=== PATIENT | female | born 1940 | race Caucasian/White ===

== ENCOUNTER 2017-04-22 14:13 | Emergency (ER) | payer OTHER, MEDICARE ==
[~2017-04-22] VITALS: Ht 152.4 cm; Wt 99.7 kg
[~2017-04-22 14:13] MED LIST: ADVAIR 250/501 DISK IH; ALEVE220 MG PO; Ascorbic Acid,Ester- PO; Benadryl PO; CYMBALTA30 MG PO; Coreg PO; Coumadin,Jantoven PO; Cymbalta PO; Feosol PO; Folvite PO; HYZAAR 100-21 TABLET PO; LEVOTHYROXINE50 MCG PO; LIDODERM 5% P1 PATCH TD; LO-DOSE ASPIRIN81 M1 PO; LOPRESSOR25 MG PO; Levaquin PO; Levothroid,Synthroid PO; Lopressor PO; METOPROLOL TART25 MG PO; Maalox, Mylanta PO; NOVOLOG PE100 UNITS/ SC; OxyCONTIN PO; PLAVIX75 MG PO; PROAIR HFA8.5 GM IH; Percocet 5/325,Endoc PO; Plavix PO; Pravachol PO; Proventil,Ventolin H IH; Reglan PO; SIMVASTATIN40 MG PO; SYNTHROID50 MCG PO; Senokot S,Pericolace PO; TYLENOL REGULA325 MG PO; Theragran PO; ULTRACET1 TABLET PO; Vitamin D PO; ZITHROMAX250 MG PO; ZOCOR40 MG PO; oxyCODONE PO; predniSONE PO
[2017-04-22 15:08] LABS: APPEARANCE SL.HAZY ((CLEAR)); BILIRUBIN NEGATIVE; BLOOD LARGE; COLOR YELLOW ((YELLOW)); GLUCOSE (STRIP) NEGATIVE; KETONES NEGATIVE; LEUKOCYTES NEGATIVE; NITRITE NEGATIVE; PROTEIN (STRIP) 30; SPECIFIC GRAVITY 1.014 (1.000-1.030); UROBILINOGEN 0.2 MG/DL (0.2-1.0)
[2017-04-22 15:13] LABS: BACTERIA NONE SEEN /HPF; EPITHELIAL CELLS RARE /HPF; MUCUS TRACE /LPF; RED BLOOD CELLS TNTC /HPF (0-5)
[2017-04-22 16:00] LABS: BASOPHIL (%) 0.2 % (0-1); EOSINOPHIL (%) 0.3 % (0-5); HEMATOCRIT 38.8 % (36.0-46.0); HEMOGLOBIN 12.4 G/DL (11.9-15.5); IMMATURE GRANULOCYTE (%) 0.5 % (0.0-0.7); LYMPHOCYTE (%) 8.9 % (15-42); LYMPHOCYTE COUNT 1.1 K/uL (1.0-2.8); MCH 27.4 PG (29.0-34.0); MCV 85.8 FL (83-99); MONOCYTE COUNT 0.8 K/uL (0-0.8); NEUTROPHIL (%) 84.1 % (45-76); NEUTROPHIL COUNT 10.8 K/uL (1.8-6.4); PLATELET COUNT 188 K/uL (156-360); RBC DIS.WIDTH-CV 12.7 % (11.8-14.6); RBC DIS.WIDTH-SD 39.7 % (39-53); RED BLOOD COUNT 4.52 M/uL (3.80-5.20); WHITE BLOOD COUNT 12.8 K/uL (4.1-10.2)
[2017-04-22 16:08] LABS: CHLORIDE 107 mEq/L (99-109); POTASSIUM 5.8 mEq/L (3.7-5.4); SODIUM 138 mEq/L (136-147)
[2017-04-22 16:10] LABS: GLUCOSE 102 mg/dL (70-99)
[2017-04-22 16:14] LABS: CREATININE 1.5 mg/dL (0.6-1.3); GFR ESTIMATE (CALCULATED) 36 mL/min/
[2017-04-22 16:15] LABS: UREA NITROGEN (BUN) 42 mg/dL (9-23)
[2017-04-22] MEDS ORDERED: PERCOCET 5/31 TABLET PO (16:22)
[2017-04-22] MEDS ORDERED: ZOFRAN ODT4 MG PO (16:22)
[2017-04-22 16:46] VITALS: BP 152/79
== END 2017-04-22 16:47 | disposition home or self-care (01) ==
LOC: EME 14:13
PROVIDERS: Physician Assistant
DX: N13.2 Hydronephrosis with renal and ureteral calculous obstruction (principal); K57.30 Diverticulosis of large intestine without perforation or abscess without bleeding; R31.9 Hematuria, unspecified; J45.909 Unspecified asthma, uncomplicated; I10 Essential (primary) hypertension; E11.9 Type 2 diabetes mellitus without complications; Z86.73 Personal history of transient ischemic attack (TIA), and cerebral infarction without residual deficits; Z79.82 Long term (current) use of aspirin; Z88.8 Allergy status to other drugs, medicaments and biological substances
CPT/HCPCS: 74176; 80048; 81003; 85025; 99281; 99283

== ENCOUNTER 2017-12-09 22:44 | Inpatient (IN) | payer OTHER, MEDICARE ==
[~2017-12-09] VITALS: Ht 160 cm; Wt 99.0 kg
[~2017-12-09 22:44] MED LIST changes: +FLOVENT 11120 INHALA IH; +IRON325 M1 PO; +PERCOCET 5/31 TABLET PO; +RESTASIS MULTI5.5 ML BOTH EYES; +ROXICODONE5 MG PO; +ZOFRAN ODT4 MG PO
[2017-12-10 10:41] VITALS: BP 196/87
[2017-12-10 20:41] VITALS: BP 150/65
[2017-12-11 00:32] VITALS: BP 122/49
[2017-12-11 05:06] VITALS: BP 137/61
[2017-12-11 07:31] VITALS: BP 136/58
[2017-12-11 11:11] VITALS: BP 160/80
[2017-12-11 16:25] VITALS: BP 149/69
[2017-12-11 19:20] VITALS: BP 143/67
[2017-12-12 00:16] VITALS: BP 133/60
[2017-12-12 06:49] LABS: BASOPHIL (%) 0.2 % (0-1); EOSINOPHIL (%) 0.6 % (0-5); EOSINOPHIL COUNT 0.1 K/uL (0-0.3); HEMATOCRIT 28.4 % (36.0-46.0); IMMATURE GRANULOCYTE (%) 0.3 % (0.0-0.7); LYMPHOCYTE (%) 10.1 % (15-42); LYMPHOCYTE COUNT 1.2 K/uL (1.0-2.8); MCH 25.4 PG (29.0-34.0); MCHC 29.9 G/DL (30.0-36.0); MCV 84.8 FL (83-99); MONOCYTE (%) 7.7 % (3-12); MONOCYTE COUNT 0.9 K/uL (0-0.8); NEUTROPHIL (%) 81.1 % (45-76); NEUTROPHIL COUNT 9.9 K/uL (1.8-6.4); PLATELET COUNT 146 K/uL (156-360); RBC DIS.WIDTH-CV 19.2 % (11.8-14.6); RBC DIS.WIDTH-SD 59.7 % (39-53); WHITE BLOOD COUNT 12.2 K/uL (4.1-10.2)
[2017-12-12 06:55] LABS: HEMOGLOBIN 8.5 G/DL (11.9-15.5); RED BLOOD COUNT 3.35 M/uL (3.80-5.20)
[2017-12-12 07:43] VITALS: BP 145/64
[2017-12-12 15:36] VITALS: BP 154/69
[2017-12-12 20:27] VITALS: BP 152/67
[2017-12-13 00:10] VITALS: BP 149/65
[2017-12-13 07:42] VITALS: BP 127/60
[2017-12-13] MEDS ORDERED: OXYCODONE HCL5 MG PO (11:27)
[2017-12-13 11:39] VITALS: BP 146/66
[2017-12-13 15:16] VITALS: BP 143/64
== END 2017-12-13 17:07 | DRG 483 ==
LOC: ENRESERV 22:44 → 3EAST 12-10 09:45 → 2SOUTH 12-10 09:45 → ENRESERV 12-10 17:30 → 3EAST 12-10 20:00
PROVIDERS: Specialist
PROC: 0RRJ0J7 Replacement of Right Shoulder Joint with Synthetic Substitute, Glenoid Surface, Open Approach (ICD-10-PCS; principal; 2017-12-10)
DX: M19.011 Primary osteoarthritis, right shoulder (principal); M75.120 Complete rotator cuff tear or rupture of unspecified shoulder, not specified as traumatic; S42.143A Displaced fracture of glenoid cavity of scapula, unspecified shoulder, initial encounter for closed fracture; M96.89 Other intraoperative and postprocedural complications and disorders of the musculoskeletal system; Y84.8 Other medical procedures as the cause of abnormal reaction of the patient, or of later complication, without mention of misadventure at the time of the procedure; Y92.234 Operating room of hospital as the place of occurrence of the external cause
CPT/HCPCS: 71045; 73020; 73200; 80069; 83605; 85025; 85027; 94640; 94760; 94799; 97530 GP; C1713; J0131; J0690; J1100; J1650; J2250; J2405; J2795; J3010; J7050; J7643; Q0175